=== PATIENT | female | born 1960 | race Caucasian/White ===

== ENCOUNTER → 2022-08-08 10:19 | Outpatient (REF) | payer OTHER, SELFPAY ==
--- NOTE | 2022-08-08 10:29 | CA_ITS ---
Transthoracic Echocardiogram Patient (Last, First, Middle): Agustina Hawley, Gender: Female Date of : 1960 Age: 61 Procedure Date: 08/08/2022 Procedure Type: Transthoracic Echocardiogram Location: [facility] Height: 162.56 cm Weight: 76.2 kg BSA: 1.82 m2 Heart Rate: 46 bpm BP: 110 / 60 mmHg [employer]: EMILY Referring MD: Sal Boyer MD Symptoms: R01.1 MURMUR Study Quality: Adequate ECG Rhythm: Bradycardia Conclusions: - Normal left ventricular size and systolic function. There is mildly increased left ventricular wall thickness. The visually estimated ejection fraction is between 65-70%. - E/E prime ratio is between 8 and 15 consistent with indeterminate filling pressures. - Normal right ventricular cavity size and systolic function. - There is mild aortic valve stenosis. Findings Left Ventricle Normal left ventricular size and systolic function. There is mildly increased left ventricular wall thickness. The visually estimated ejection fraction is between 65-70%. There is no evidence of regional wall motion abnormalities. Abnormal diastolic function is noted. Spectral Doppler is indicative of an impaired relaxation filling pattern. E/E prime ratio is between 8 and 15 consistent with indeterminate filling pressures. Right Ventricle Normal right ventricular cavity size and systolic function. Atria The left atrium is normal in size. The right atrium is normal in size. Aortic Valve Normal aortic valve structure and function. There is mild aortic valve stenosis. The peak aortic velocity is 2.48 m/s. The aortic valve area is 1.40 cm2. There is no aortic valve regurgitation. Mitral Valve Normal mitral valve structure and function. There is no mitral valve regurgitation. There is no mitral valve stenosis. Pulmonic Valve The pulmonic valve is likely normal. Tricuspid Valve Normal tricuspid valve structure and function. There is trace tricuspid valve regurgitation. Normal right atrial pressure. There is no evidence of pulmonary hypertension. Great Vessels All visible segments of the aorta are normal in size. The visualized portions of the pulmonary artery and branches are normal. Venous The inferior vena cava is normal in size and collapses greater than 50% with inspiration. Pericardium/Pleural There is no evidence of pericardial effusion. Measurements 2D Linear Measurements IVSd: 1.19 0.6-0.9/0.6-1.0 cm LVIDd: 4.07 3.9-5.3/4.2-5.9 cm LVIDd Index: 2.24 2.4-3.2/2.2-3.1 cm/m2 LVIDs: 2.31 2.0-3.6 cm LVPWd: 0.94 0.7-1.1 cm LA Diam: 4.00 2.7-3.8/3.0-4.0 cm LAIDs Index: 2.20 1.5-2.3 cm/m2 LV Mass: 177.39 67-162/88-224 g LV Mass Index: 97.46 43-95/49-115 g/m2 LVOT Diam: 1.80 3.0+(-)1.3 cm 2D Systolic Function EF 4C: 64.20 >55% EF 2C: 68.00 >55% EF BiP: 66.00 >55% Mitral Valve MV Pk E: 0.97 MV PK A: 1.14 MV Decel Time: 180.00 E/A: 0.80 E'Lateral: 8.59 E'Medial: 7.72 E/E' Med: 12.50 E/E' Lat: 11.30 PHT: 53.00 MVA PHT: 4.15 Decel [place]: 5.39 Aortic Valve AoV Pk Alvarez: 2.48 AoV Mn Alvarez: 1.70 AoV VTI: 0.60 AoV Pk Grad: 25.00 Aov Mn Grad: 13.00 RAMU Cont.VTI: 1.40 LVOT LVOT Pk Alvarez: 1.50 LVOT Mn Alvarez: 0.93 LVOT VTI: 0.33 LVOT Pk Grad: 9.00 LVOT Mn Grad: 4.00 LVOT Diam: 1.80 LVOT Area: 2.54 Diastolic Function MV Pk E: 0.97 MV Pk A: 1.14 E/A: 0.80 E'Medial: 7.72 E/E' Med: 12.50 E' Laterial: 8.59 E/E' Lat: 11.30 Right Ventricle TAPSE (mm): 30.40 TVS' Alvarez: 15.90 Tricuspid Valve TR Pk Alvarez: 2.20 TR Pk Grad: 19.00 RA Press: 3.00 RVSP: 22.00 Great Vessels Aorta Sinus of Valsalva: 2.90 2.0-3.5 cm Ao Asc: 3.10 2.1-3.4 cm Pulmonary Valve PV Pk Alvarez: 1.11 Peak PV Grad: 5.00 Updated in Other Vendor System with Status of Final Cahcho Damian MD electronically signed on 08/09/2022 11:47:15 PM with status of Final
== END ==
LOC: HO.CARD 10:19
PROVIDERS: Visit Provider Family Medicine
DX: R01.1 Cardiac murmur, unspecified (principal)
CPT/HCPCS: 93306